=== PATIENT | female | born 1950 ===

== ENCOUNTER 2024-06-09 06:24 | Inpatient (IN) | payer MEDICARE ==
[2024-06-09] MEDS ORDERED: DEXAMETHASONE SOD PHOSPHATE 4 MG/ML 1 ML VIAL ONE ×5 (07:26→08:51)
[2024-06-09] MEDS ORDERED: ONDANSETRON 4 MG/2 ML VIAL ONE ×2 (07:26)
[2024-06-09] MEDS ORDERED: ACETAMINOPHEN TAB 500 MG TAB ONE ×2 (07:26)
[2024-06-09] MEDS ORDERED: MELOXICAM 7.5 MG TAB ONE ×2 (07:26)
[2024-06-09] MEDS ORDERED: fentaNYL (PF) 50 MCG/ML 2 ML AMP ONE ×3 (07:52→08:51)
[2024-06-09] MEDS ORDERED: MIDAZOLAM 2 MG/2 ML VIAL ONE ×3 (07:52→08:51)
[2024-06-09] MEDS ORDERED: ROPIVACAINE 5 MG/ML 30 ML VIAL ONE ×3 (07:52→08:51)
[2024-06-09] MEDS ORDERED: ROCURONIUM 10 MG/ML (5 ML VIAL) IV ONE (08:51)
[2024-06-09] MEDS ORDERED: LIDOCAINE 1% INJ 10MG/ML (20 ML MDV) ONE (08:51)
[2024-06-09] MEDS ORDERED: TRANEXAMIC 1,000 MG/100ML-NACL PREMIX BAG ONE (08:51)
[2024-06-09] MEDS ORDERED: GLYCOPYRROLATE 0.2 MG/ML 2 ML VIAL ONE (08:51)
[2024-06-09] MEDS ORDERED: NEOSTIGMINE 1 MG/ML 10 ML VIAL ONE (08:51)
[2024-06-09] MEDS ORDERED: PROPOFOL 10 MG/ML 20 ML VIAL IV ONE (08:51)
[2024-06-09] MEDS ORDERED: KETAMINE HCL IN 0.9 % NACL 50 MG/5 ML SYRINGE ONE (08:51)
[2024-06-09] MEDS ORDERED: PHENYLEPHRINE 10 MG/ML VIAL ONE (08:51)
[2024-06-09] MEDS ORDERED: KETOROLAC 15 MG/ML 1 ML VIAL ONE (11:37)
[2024-06-09] MEDS ORDERED: ACETAMINOPHEN IV (For NPO) 100 ML ONE (12:36)
[2024-06-09] MEDS ORDERED: hydrOXYzine pamoate 25 MG CAP ONE ×3 (15:48→21:20)
[2024-06-09] MEDS ORDERED: traMADol 50 MG TAB ONE ×3 (15:49→21:11)
--- NOTE | 2024-06-09 18:05 | OP ---
OPERATIVE REPORT DATE OF SERVICE : 06/09/2024 PREOPERATIVE DIAGNOSIS: Right severe glenohumeral joint osteoarthrosis. POSTOPERATIVE DIAGNOSIS: Right severe glenohumeral joint osteoarthrosis. PROCEDURE: Right total shoulder arthroplasty. WINTER INTERN: Tiffanie. ANESTHESIA: General with preoperative interscalene block. PREP: DuraPrep. INDICATION FOR PROCEDURE: The patient is a 73-year-old female who presents with progressive right shoulder pain secondary to osteoarthrosis despite conservative measures. A discussion of the risks and benefits of operative intervention versus continued conservative measures was made with the patient. She opted to proceed with surgery. Operative risks to include infection, neurovascular injury, development of blood clot, fracture, possible component loosening/failure, and possible need for subsequent procedures were discussed. Informed consent was obtained. DESCRIPTION OF PROCEDURE: The patient was brought to the operating room and after induction of general anesthesia was placed in a beach chair position. The bony prominences were appropriately padded. The right upper extremity was prepped and draped in a normal fashion. A deltopectoral incision was then made starting lateral to the coracoid process, extending approximately 12 cm. Skin was incised sharply. Subcutaneous tissues were divided bluntly. Electrocautery was used for hemostasis. The cephalic vein was identified, and the deltopectoral interval bluntly dissected. The cephalic vein was retracted laterally. The upper one-third of the pectoralis major was then released with electrocautery. The clavipectoral fascia was opened, and the conjoined tendon was gently retracted medially and the deltoid laterally. The biceps was identified, and its sheath was opened. The rotator interval was opened. The biceps was then tenotomized and allowed to retract distally. The subscapularis was then peeled off the lesser tuberosity. This was then tagged with #2 Ethibond suture. The anterior capsule was resected. The shoulder was gently dislocated. The canal was then reamed in line with the bicipital groove by hand. This was reamed up to 12 mm with good distal chatter. The cutting guide was then placed. I planned on resection at the level of the rotator cuff insertion. 30 degrees of retroversion was planned. The cutting guide was pinned in place. The humeral head cut was then made. The head was then removed. The remaining inferior osteophytes were removed flush with the [place] bone. Attention was then paid toward preparing the glenoid. A Fukuda retractor was placed. An anterior glenohumeral neck retractor was also placed. The remaining labral tissue was debrided sharply with a 15 blade starting from the 12 to 6 o'clock position. I felt I had adequate release. The glenoid was inspected. There was no remaining cartilage. The glenoid size most appropriately at 44 mm. A guide pin was then placed into the center/center portion of the glenoid. A reamer was then utilized down to bleeding subchondral bone. Peripheral osteophytes were removed with a second reamer. The central peg hole was then drilled. The alignment guide was placed, and the peripheral drill holes were made. Pulsatile lavage was utilized. A 44 mm central pegged glenoid was then cemented in place. The peripheral holes were pressurized with cement. The central peg hole was bone grafted utilizing humeral head graft. The implant was then impacted. This was held in place until the cement had sufficiently hardened. Attention was then paid toward preparing the proximal humerus. A size 12 metaphyseal broach was inserted to the appropriate depth at 30 degrees of retroversion. A trial 44 x 21 mm eccentric humeral head was placed. The shoulder was gently reduced. It was taken through range of motion. It was felt to be stable in flexion and extension with internal and external rotation. I felt there was adequate latter-day of soft tissue tension. The trial components were then removed. Two drill holes were made in the bicipital groove for reattachment of the subscapularis. A #2 Ethibond suture was placed. The humeral stem was then inserted in 30 degrees of retroversion and was fully seated. There was good rotational stability. The eccentric 44 x 21 mm humeral head was then impacted in the appropriate orientation. This was fully seated. The shoulder was gently reduced. Again, it was taken through range of motion and felt to be stable in flexion and extension with internal and external rotation. Pulsatile lavage was utilized. The rotator interval was closed with #2 Ethibond suture. The subscapularis was repaired utilizing #2 Ethibond suture. The subcutaneous tissues were reapproximated with interrupted 2-0 Vicryl sutures. The skin was reapproximated with 3- 0 subcuticular Prolene suture. Steri-Strips were applied as well as a sterile dressing. A sling was applied. The patient was awoken from general anesthesia and transferred to the recovery room in good condition. BLOOD LOSS: Estimated at 100 mL. COMPLICATIONS: No complications were incurred. COUNT: Sponge and needle counts were correct at the end of the case. IMPLANTS: [employer] AP, size 12 press-fit humeral stem, size 12 metaphyseal body, 44 x 21 mm eccentric humeral head, 44 mm central pegged cemented glenoid component. MMODL / IJN: [id number] /
[2024-06-09] MEDS ORDERED: lisinopriL 10 MG TAB ONE (21:11)
[2024-06-09] MEDS ORDERED: HYDROmorphone 0.5 MG/0.5 ML SYRINGE ONE ×2 (23:42)
[2024-06-10] MEDS ORDERED: ONDANSETRON 4 MG/2 ML VIAL ONE ×6 (02:38→20:56)
[2024-06-10] MEDS ORDERED: traMADol 50 MG TAB ONE ×8 (02:38→20:39)
[2024-06-10] MEDS ORDERED: HYDROmorphone 0.5 MG/0.5 ML SYRINGE ONE ×12 (05:32→21:54)
[2024-06-10] MEDS ORDERED: ACETAMINOPHEN TAB 325 MG TAB ONE ×4 (08:09→23:34)
[2024-06-10] MEDS ORDERED: amLODIPine 10 MG TAB ONE (08:09)
[2024-06-10] MEDS ORDERED: ASPIRIN 325 MG TAB ONE ×2 (08:09)
[2024-06-10] MEDS ORDERED: SENNOSIDES 8.6 MG TAB ONE (08:10)
[2024-06-10] MEDS ORDERED: IPRATROPIUM-ALBUTEROL 3 ML NEB ONE ×2 (08:13)
[2024-06-10] MEDS ORDERED: HYDROmorphone 0.5 MG/0.5 ML SYRINGE IVP PRN (22:46)
[2024-06-10] MEDS ORDERED: hydrOXYzine pamoate 25 MG CAP PO PRN (22:47)
[2024-06-10] MEDS ORDERED: hydrOXYzine HCL 50 MG/ML 1 ML VIAL IM PRN (22:48)
[2024-06-10] MEDS ORDERED: ALBUTEROL HFA INHALER INHALATION PRN (22:50)
[2024-06-10] MEDS ORDERED: ONDANSETRON 4 MG/2 ML VIAL IVP PRN (22:51)
[2024-06-11] MEDS ORDERED: HYDROmorphone 0.5 MG/0.5 ML SYRINGE ONE ×2 (01:52)
[2024-06-11] MEDS: traMADol 50 MG TAB PO SCH (03:00)
[2024-06-11] MEDS ORDERED: traMADol 50 MG TAB ONE ×2 (04:28→10:06)
[2024-06-11] MEDS ORDERED: ACETAMINOPHEN TAB 325 MG TAB ONE (06:04)
[2024-06-11] MEDS: ACETAMINOPHEN TAB 325 MG TAB PO PRN (06:05)
[2024-06-11 07:39] VITALS: BP 107/62; PULSE 78; RESP 16; TEMP 97.7
[2024-06-11] MEDS: traMADol 50 MG TAB ONE (07:40)
[2024-06-11] MEDS: hydrOXYzine pamoate 25 MG CAP ONE (07:40)
[2024-06-11] MEDS: amLODIPine 10 MG TAB PO SCH (07:41)
[2024-06-11] MEDS: SENNOSIDES 8.6 MG TAB PO SCH (08:12)
[2024-06-11] MEDS ORDERED: ASPIRIN 325 MG TAB ONE (08:12)
[2024-06-11] MEDS: ASPIRIN 325 MG TAB PO SCH (08:14)
[2024-06-11] MEDS: SYMBICORT 160-4.5 MCG INHALER INHALATION SCH (08:53)
[2024-06-11] MEDS: IPRATROPIUM 0.5 MG/2.5 ML NEBU INHALATION SCH (08:54)
[2024-06-11] MEDS ORDERED: lisinopriL 10 MG TAB PO SCH (21:00)
--- NOTE | 2024-06-15 10:46 | XR ---
[facility] - Radiology Report Patient: Shraddha Bustillos Ordering Physician: Unknown, Unknown ID: [id number] Phone, Pager: Phone: N/A Pager: N/A : [phone] Age/Gender: 73Y, F Primary Location: N/A Procedure: XR shoulder limited RT Study Date: 06/09/2024 11:19:00 AM EXAMINATION TYPE: Shoulder X-Ray Limited Left DATE OF EXAM: 06/09/2024 CLINICAL HISTORY: pain COMPARISON: NONE TECHNIQUE: Single portable view of the right shoulder. FINDINGS: IMPRESSION: Single portable right shoulder total right glenohumeral arthroplasty. Postoperative alignment is with in normal limits.
--- NOTE | 2024-07-03 10:46 | HP ---
HISTORY AND PHYSICAL CHIEF COMPLAINT: Right shoulder pain. HISTORY OF PRESENT ILLNESS: The patient is a 73-year-old retired [id number] female, who presents with progressive right shoulder pain for the past 6 months. She is having pain with overhead activity and at night. She has tried home exercises along with medications and injections, with only temporary partial relief. She notes daily pain. PAST MEDICAL HISTORY: Significant for COPD and hypertension. PAST SURGICAL HISTORY: Significant for right total knee arthroplasty along with cardiac catheterization. CURRENT MEDICATIONS: 1. Albuterol. 2. Amlodipine. 3. Lisinopril. ALLERGIES: She notes allergies to codeine. FAMILY HISTORY: Negative. SOCIAL HISTORY: Negative for current tobacco or alcohol use. REVIEW OF SYSTEMS: 16-point review of systems is otherwise reviewed and is noncontributory. PHYSICAL EXAMINATION: VITAL SIGNS: On examination, the patient is approximately 5 feet 3 inches, 136 pounds of mesomorphic habitus. HEENT: Nonfocal. NECK: Supple. EXTREMITIES: She has active range of motion, right shoulder. Forward elevation 80 degrees. External rotation with the arm at the side 0 degrees, internal rotation to L5. Motor strength is 5-/5 for abduction and external rotation. Impingement test, and Neer test are positive. Her distal neurovascular exam appears intact in the right upper extremity. X-rays of the right shoulder obtained in the office show severe glenohumeral joint osteoarthrosis with [id number] changes and subchondral sclerosis. IMPRESSION: Right severe glenohumeral joint osteoarthritis. RECOMMENDATIONS: I talked to the patient at length regarding her condition along with treatment options. At this point, she is quite symptomatic despite extensive previous conservative measures. After thorough discussion, she opts to proceed with surgery. We will plan to proceed with right total shoulder arthroplasty. Potentially, we will perform that as an outpatient procedure. Risks and benefits were discussed at length in layman's terms. MMODL / IJN: [id number] /
== END 2024-06-11 11:30 | disposition home or self-care (01) | DRG 483 ==
LOC: OR 06:24 → 4SSUR 11:01
PROVIDERS: ADMIT Orthopaedic Surgery; ATTEND Orthopaedic Surgery
PROC: 0RRJ0JZ Replacement of Right Shoulder Joint with Synthetic Substitute, Open Approach (ICD-10-PCS; principal; 2024-06-09 08:15)
DX: M19.011 Primary osteoarthritis, right shoulder (principal); M25.711 Osteophyte, right shoulder; Z96.651 Presence of right artificial knee joint; Z88.5 Allergy status to narcotic agent; Z79.899 Other long term (current) drug therapy